=== PATIENT | male | born 1945 | race Caucasian/White ===

== ENCOUNTER 2019-04-13 01:39 | Inpatient (IN) | payer OTHER ==
[2019-04-13] VITALS (11 sets, daily range): BP systolic 54–194; BP diastolic 19–95; Ht 185.4 cm; Wt 135.0 kg
[~2019-04-13] VITALS: Ht 185.4 cm; Wt 135.0 kg
--- NOTE | 2019-04-13 01:50 | NUR ---
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 PT STATES THAT HE WAS TRYING TO HAVE A BOWEL MOVEMENT AND STARTED TO EXPERIENCE CHEST PAIN UNDER THE R BREAST THAT RADIATES UP TOWARDS THE LEFT BREAST. PT HAD A RELIEF OF PAIN DOWN TO 2 AFTER THE ADMINISTRATION OF 4 NITROS FITNESS FLOOR ATTENDANT. PT CURRENTLY HAS CHEST PAIN OF 2/10 THAT IS STILL UNDER THE R CHEST. PT IS DIAPHORETIC AND TACHYPNIC. PT HAS HX OF AFIB AND IS AFIB ON THE MONITORS. PT IS SPEAKING IN SHORT 2 TO 3 WORD SENTENCES. PT HAS UPPER LOBE WHEEZING AFTER 1 BREATHING TX EN ROUTE. PT HAS DIMINISHED LUNG SOUNDS IN THE BL BASES. PT HAS PITTING EDEMA TO BLLE EXTREMETIES AND BL UPPER EXTREMITIES. PT HAS EXTENSIVE HX. MD ROMERO AWARE AND AT BEDSIDE. PT CONNECTED TO FULL CM, PULSE OX AND BP MONITORS. AWAITING NEW ORDERS AT THIS TIME. CIM OFFICERS AT BEDSIDE
--- NOTE | 2019-04-13 02:10 | NUR ---
PT HAS SCABBING TO INNER BUTT CREASE FOLD. NO OPEN WOUND NOTED. BLANCHABLE REDNESS TO SACRAL/COCCYX AREA.
[2019-04-13 02:57] LABS: PLATELET COUNT 100 x10^3mcL (130-400); RED CELL DISTRIBUTION WIDTH 15.6 % (11.5-14.5)
[2019-04-13 03:19] LABS: ALKALINE PHOSPHATASE 206 U/L (46-116); ALT/SGPT 385 U/L (16-63); AST/SGOT 267 U/L (15-37); BILIRUBIN TOTAL 2.73 mg/dL (0.20-1.00); CARBON DIOXIDE 34.3 mmol/L (21-32); CHLORIDE SERUM 102 mmol/L (98-107); CREATININE SERUM 1.4 mg/dL (0.7-1.3); GLUCOSE SERUM 344 mg/dL (74-106); SODIUM SERUM 146 mmol/L (136-145)
[2019-04-13 03:20] LABS: ALBUMIN 2.7 g/dL (3.4-5.0); TOTAL PROTEIN, SERUM 5.6 g/dL (6.4-8.2)
[2019-04-13 03:22] LABS: POTASSIUM SERUM 2.3 mmol/L (3.5-5.1)
[2019-04-13 03:26] LABS: ATYPICAL LYMPH 1 %; BAND NEUTROPHIL 5 % (0-10); MONOCYTE 1 % (0-7); SEGMENTED NEUTROPHILS 90 % (37-75)
[2019-04-13 03:27] LABS: PLATELET MORPHOLOGY PLATELETS DECREASED; rbc morphology (normal/abnorm) ABNORMAL (NORMAL)
--- NOTE | 2019-04-13 03:59 | NUR ---
MD ROMERO MADE AWARE OF PT CURRENT CHEST PAIN AT 510 AT THIS TIME. AWAITING NEW ORDERS AT THIS TIME
[2019-04-13] MEDS ORDERED: TOPROL XL25 MG PO (04:06)
[2019-04-13] MEDS ORDERED: ENALAPRIL MALEA10 MG PO (04:06)
[2019-04-13] MEDS ORDERED: GOOD SENSE ASP325 MG PO (04:07)
--- NOTE | 2019-04-13 04:21 | NUR ---
PT BECOMES INCREASINGLY SOB UPON DOING ANY MOVEMENT. PT HAD TO URINATE AND BECOMES INCREASING SOB AND HIS HR INCREASES BY 20-40 BEATS ON THE MONITOR. MD ROMERO MADE AWARE
--- NOTE | 2019-04-13 04:22 | NUR ---
CALLED LAB FOR BLOOD CULTURE DRAW
--- NOTE | 2019-04-13 04:25 | NUR ---
PT HAS AUDIBLE MOIST COUGH HEARD. NON PRODUCTIVE AT THIS TIME. PT STILL AXO X4. PT APPPEARS LESS DIAPHORETIC WHILE NOT MOVING. PT CALM AND COOPERATIVE ALL MONITORS STILL IN PLACE
[2019-04-13 04:43] LABS: CHOLESTEROL/HDL RATIO 3.3; MAGNESIUM 2.3 mg/dL (1.8-2.4)
--- NOTE | 2019-04-13 04:51 | NUR ---
ULTRASOUND AT BEDSIDE
--- NOTE | 2019-04-13 05:14 | NUR ---
PT O2 INCREASED TO 8L NON REBREATHER MASK
--- NOTE | 2019-04-13 05:28 | NUR ---
RT AT BEDSIDE FOR BREATHING TX
--- NOTE | 2019-04-13 05:39 | NUR ---
PT PLACED ON BIPAP AND PT STATES THAT HE FEELS BETTER ON THE BIPAP. MD ROMERO MADE AWARE
--- NOTE | 2019-04-13 05:55 | NUR ---
MD HINDS MADE AWARE PT CAN NOT SWALLOW PILLS AND STATES OKAY FOR PT TO HAVE LIQUID FORM
--- NOTE | 2019-04-13 06:12 | NUR ---
PT TAKEN TO CT VIA JAROD WITH CIM AND I ACCOMPANYING HIM
--- NOTE | 2019-04-13 06:46 | NUR ---
MD LORENZO MADE AWARE OF PT CURRENT HR AND NEW ORDERS RECIEVED
--- NOTE | 2019-04-13 07:15 | NUR ---
REPORT GIVEN TO BETHANY SY RN TO RESUME FURTHER CARE OF THE PT
--- NOTE | 2019-04-13 07:16 | NUR ---
RECIEVED REPORT FROM REG NICHOLSON. AT BEDSIDE PT IS AAOX4, PT ON BIPAP, PT CALM AND COOPERATIVE, PT POSITIONED IN HIGH FOWLERS, SKIN IS PINK, WARM AND DRY.
--- NOTE | 2019-04-13 07:22 | NUR ---
PT STILL IN AFIB, DR. LORENZO/DR. HINDS MADE AWARE. QQ=248. PT TO BE SWITCHED TO ICU AND PLACED ON A CARDEZEM DRIP. WAITING FOR ORDERS. CHARGE NURSE LUIS ALBERTO MADE AWARE.
--- NOTE | 2019-04-13 07:24 | NUR ---
DR. HINDS MADE AWARE OF NEW CRITICAL RESULT. LACTIC ACID 5.0
--- NOTE | 2019-04-13 08:04 | NUR ---
PT REPOSITIONED WITH THE ASSISTANCE OF JOSE PINK. PT NOW SITTING IN HIGH FOWLERS. DK=580, SP02=97% ON BI-PAP,RR=37, SKIN IS PINK, WARM AND DRY. PT ASKED FOR SOME WATER, 150CC OF WATER GIVEN, OK PER DR. LORENZO.
--- NOTE | 2019-04-13 08:14 | NUR ---
DR. LORENZO AT BEDSIDE FOLLOWING UP ON PT. PT REPORTS NOT BEING TIRED WITH HIS BREATHING. PT ASKED FOR MORE WATER. OK FOR A LITTLE MORE PER DR. LORENZO.
--- NOTE | 2019-04-13 08:17 | NUR ---
DILTIAZEM IV INCREASED FROM 5ML/HR TO 10ML/HR. PT AAOX4. PER ICU THEY WILL CALL ME BACK TO GET REPORT.
--- NOTE | 2019-04-13 08:41 | NUR ---
HAND-OFF REPORT TO REG PANIAGUA FROM ICU TO ASSUME CARE.
--- NOTE | 2019-04-13 08:45 | NUR ---
RECEIVED PT VIA GUERNEY ACCOMPANIED BY RN AND HISTORIC PRESERVATIONIST. PT AAOX4. ABLE TO FOLLOW COMMANDS. RESTLESS AND LETHARGIC. PERRL. NO FACIAL DROOP. SPEECH IS CLEAR AND APPROPRIATE. EENT FREE OF DISCHARGE. TRACHEA MIDLINE. NO JVD PRESENT. RESPIRATIONS ARE EVEN BUT LABORED. COARSE CRACKLES/RONCHI AUSCULTATED. SYMMETRICAL CHEST WALL EXPANSION NOTED. PT PLACED ON BIPAP 10/5, FIO2 OF 100%. VS: 148/75 (89), HR = 143, RR = 30, O2 98%. AFIB WTIH RVR ON CARDIAC MONTIOR. CARDIZEM GTT INFUSING @ 10MG/MIN. MOD PULSES TO BUE, WEAK TO BLE. CAP REFILL <3 SEC. SKIN IS WARM/DRY TO BUE, COOL/DRY TO BLE. BANKS COLOR TO BUE, PALE TO BLE. +2 PITTING EDEMA TO BLE. PIV TO R FA INTACT, PORT PATENT, DRESSING CDI. ABD IS SOFT, SYMMETRICAL, ROUNDED, AND NONTENDER. PT DENIES N/V. PICTURES PENDING FOR SKIN ASSESSMENT. JOINTS INTACT. NO CONTRACTURES. CIM PT, 2 GUARDS AT BEDSIDE, WAIST CHAINS NOTED, HANDCUFFED TO BOTH ANKLES.
--- NOTE | 2019-04-13 09:10 | NUR ---
LAM CATHETER INSERTED INTO PT AT THIS TIME. SUCCESSFUL ATTEMPT. URINE IS VIANCA IN COLOR WITH 150CC OUTPUT ONCE INSERTED. NO COMPLICATIONS AT THIS TIME.
--- NOTE | 2019-04-13 09:14 | NUR ---
SPOKE WITH DR HINDS AND PROVIDED PATIENT UPDATE. NEW ORDERS RECEIVED. WILL CARRY OUT ORDERS.
--- NOTE | 2019-04-13 09:20 | NUR ---
PT REMOVED BOTH IV'S AT THIS TIME. ATTEMPTING TO INSERT ONE AT THIS TIME.
--- NOTE | 2019-04-13 09:30 | NUR ---
USING ASEPTIC TECHNIQUE, #16 PORTUGUESE LAM CATHETER INSERTED. 150 ML OF YELLOW COLORED URINE RETURNED. PATIENT TOLERATED WELL.
--- NOTE | 2019-04-13 10:10 | NUR ---
20 G IV INSERTED TO R FA INTACT, GOOD FLUSH, PORT PATENT, DRESSING CDI. CARDIZEM GTT RESTARTED @ 10 MG/MIN.
--- NOTE | 2019-04-13 11:21 | NUR ---
PT BS OF 163. NO HUMULIN REGULAR INSULIN COVERAGE GIVEN DUE TO PT'S NPO STATUS.
--- NOTE | 2019-04-13 11:48 | NUR ---
CARDIZEM GTT TITRATED TO 15 MG/MIN TO ACHIEVE HR OF 90'S. PT HR OF 120
--- NOTE | 2019-04-13 11:55 | NUR ---
PATIENT DIAPHORETIC WITH LABORED BREATHING IN 30'S. PATIENT LETHARGIC AND UNABLE TO RESPOND APPROPRIATELY. SPO2 ON BIPAP 84% AT 100% FIO2. TELEPHONED DR HINDS AND PROVIDED PATIENT UPDATE. OKAY TO INTUBATE PATIENT.
--- NOTE | 2019-04-13 11:57 | NUR ---
TELEPHONED ED AND INFORMED PATIENT IN NEED OF INTUBATION.
--- NOTE | 2019-04-13 12:20 | NUR ---
OGT TO SUCTION WITH GREEN BILE DRAINING IN CANISTER.
--- NOTE | 2019-04-13 12:27 | NUR ---
DR LEES, STEPHEN RT, LUIS ALBERTO BOO RN, ARCELIA RN AND MYSELF AT BEDSIDE. 1200- PATIENT ADMINISTERED 150 MG KETAMINE FOLLOWED BY 300 MG SUCC'S. IVP PER DR LEES ORDER. 1201- PATIENT INTUBATED WITH 7.5 ETT AT 22 LL. VITALS BP 77/35, HR 72. DR LEES MADE AWARE. VERBAL ORDER RECEIVED FOR 1L NS BOLUS AND 4 MG LEVOPHED DRIP INITIATED. 1202- CARDIZEM DRIP OFF 1210-1 LITER NS BOLUS INITIATED 1215- LEVOPHED INITIATED AT 2 MCG/HR 1217- BP 96/57 WITH MAP (68), HR REMAINS IN MID 70'S. PER DR LEES, HE WILL PLACE CENTRAL LINE.
--- NOTE | 2019-04-13 12:28 | NUR ---
DR HINDS AT BEDSIDE TO ASSESS PATIENT. UPDATES PROVIDED BY NURSING.
--- NOTE | 2019-04-13 12:30 | NUR ---
B/E SOFT WRIST RESTRAINTS APPLIED FOR PT'S SAFETY AND PROTECTION OF REMOVAL OF TUBES. 2 FINGER WIDTH UNDERNEATH RESTRAINT, EXTREMITIES WARM AND PINK, CAP REFILL <3 SEC, JOINTS INTACT. WILL CONT TO MONTIOR.
--- NOTE | 2019-04-13 13:38 | NUR ---
INITIATED FENT @ 0.5 MCG/KG/HR AND VERSED @ 1 MG/HR PER 'S ORDERS AND TO ACHEIVE RSS OF 4. WILL CONT TO MONITOR.
--- NOTE | 2019-04-13 14:13 | NUR ---
MAP OF 60. INCREASED LEVOPHED TO 4 MCG/MIN TO ACHEIVE MAP OF 65.
--- NOTE | 2019-04-13 14:45 | NUR ---
GALO RT AT BEDSIDE CHANGING VENT SETTINGS ON PT. ETT TO VENT: VCV/AC MODE = 10 PEEP, 550 VT, 100% FIO2, 18 RATE. O2 SAT OF 92%.
--- NOTE | 2019-04-13 14:50 | NUR ---
MAP OF 80. TITRATED LEVOPHED TO 2 MCG/MIN TO ACHIEVE MAP OF 65.
--- NOTE | 2019-04-13 15:38 | NUR ---
SPOKE WITH DR EASTON VIA TELEPHONE AND PROVIDED PATIENT UPDATE. NEW ORDERS RECEIVED. WILL CARRY OUT ORDERS.
--- NOTE | 2019-04-13 15:41 | NUR ---
SPOKE WITH DR HINDS AND PROVIDED PATIENT UPDATE AND TROPONIN LAB 0.39. NEW ORDERS RECEIVED. WILL CARRY OUT ORDERS.
--- NOTE | 2019-04-13 15:45 | NUR ---
LEVOPHED TURNED OFF AT THIS TIME. PT'S MAP OF 90
--- NOTE | 2019-04-13 16:45 | NUR ---
MAP OF 48. LEVOPHED TURNED ON AT THIS TIME INFUSING @ 2 MCG/MIN TO ACHIEVE MAP OF 65.
--- NOTE | 2019-04-13 17:00 | NUR ---
RESTRAINTS TAKEN OFF AT THIS TIME. PT OBTUNDED. NO INDICATED FOR USE.
--- NOTE | 2019-04-13 17:01 | NUR ---
DR PINEDA BEDSIDE AT BEDSIDE TO ASSESS PATIENT. UPDATES PROVIDED BY NURSING.
--- NOTE | 2019-04-13 17:03 | NUR ---
LEVO TITRATED TO 4 MCG/MIN TO ACHEIEVE MAP OF 65.
--- NOTE | 2019-04-13 17:12 | NUR ---
1715 - PT WENT BRADYCARDIC IN THE 50'S. 171 - CHECKED FOR PULSE. NO PULSE PALPABLE OR WITH DOPPLER. CODE BLUE CALLED AND CPR BEGAN. 171 - DR. PINEDA AT BEDSIDE AND STATED FOR EPI TO BE GIVEN. FIRST DOSE OF EPINEPHRINE 1:1000 GIVEN AND FLUSHED. 171 - DR. JOHNSTON AT BEDSIDE 1720 - PULSE GAINED BACK. BP = 139/76 (98). SEE CODE SHEET FOR DETAILS.
--- NOTE | 2019-04-13 17:20 | NUR ---
LEVOPHED TITRATED TO 6 MCG/MIN TO ACHEIVE MAP OF 65.
--- NOTE | 2019-04-13 17:25 | NUR ---
LEVOPHED TITRATED TO 8 MCG/MIN TO ACHEIVE MAP OF 65.
--- NOTE | 2019-04-13 17:45 | NUR ---
LEVOPHED TITRATED TO 10 MCG/MIN TO ACHEIVE MAP OF 65.
--- NOTE | 2019-04-13 17:50 | NUR ---
LEVOPHED TITRATED TO 12 MCG/MIN TO ACHEIVE MAP OF 65.
--- NOTE | 2019-04-13 18:10 | NUR ---
LEVOPHED TITRATED TO 14 MCG/MIN TO ACHEIVE MAP OF 65.
--- NOTE | 2019-04-13 18:30 | NUR ---
1830 - PT BECOMING BRADYCARDIC. CHECK FOR PULSES. NO PULSES PALPABLE AND VIA DOPPLER. DR. EASTON SAYS TO GIVE EPI 1:1000. EPI GIVEN. 183 - 2ND EPI GIVEN. 183 - BICARB AND D50 GIVEN. PULSE CHECK - PULSE REGAINED AT THIS TIME. SEE CODE SHEET FOR DETAILS.
--- NOTE | 2019-04-13 18:40 | NUR ---
RIGHT FEMORAL PLACED BY DR. EASTON. ULTRASOUND AT BEDSIDE. ART LINE CONNECTED TO MONITOR AT THIS TIME. BP OF 60/44 (49).
--- NOTE | 2019-04-13 18:50 | NUR ---
PER DR. EASTON, VERBAL ORDER FOR PT TO BE STARTED ON DOPAMINE GTT AT THIS TIME. INITIATED DOPAMINE @ 10 MCG/KG/MIN.
--- NOTE | 2019-04-13 19:19 | NUR ---
RECIEVED REPORT FROM REG PANIAGUA. PT UPDATES. POC DISCUSSED. SEE SHIFT ASSESSMENT FOR ASSESSMENT.
--- NOTE | 2019-04-13 19:20 | NUR ---
REPORT GIVEN TO MICHAEL FINNEY. ALL QUESTIONS AND CONCERNS ADDRESSED. WILL ENDORSE CARE.
--- NOTE | 2019-04-13 19:30 | NUR ---
LEVOPHED TITRATED TO 16 MCG/MIN TO ACHEIVE MAP OF 65.
--- NOTE | 2019-04-13 20:00 | NUR ---
LEVOPHED TITRATED TO 18 MCG/MIN TO ACHEIVE MAP OF 65.
--- NOTE | 2019-04-13 20:30 | NUR ---
NOTIFIED DR MARTINEZ OF LOW BP TRENDING DOWNWARD W/ POOR RESPONSE TO TITRATION OF LEVO. INTIATED NEW ORDER VASOPRESSIN 100U/500ML DRIP TO MAINTAIN MAP > 65 ORDER VERIFIED PER TELEPHONE PHARMACY.
--- NOTE | 2019-04-13 20:30 | NUR ---
LEVOPHED TITRATED TO MAX 30 MCG/MIN TO ACHEIVE MAP OF 65.
--- NOTE | 2019-04-13 20:30 | NUR ---
LEVOPHED TITRATED TO 25 MCG/MIN TO ACHEIVE MAP OF 65. PT BP VERY LOW 55/19(40).
--- NOTE | 2019-04-13 21:11 | NUR ---
INTIATED VASO DRIP @ 0.01U/MIN. PT BP UNRESPONSIVE. TITRATED TO 0.02U/MIN PER PROTOCOL. PT BP SLIGHTLLY BETTER MAP INCREASED FROM 40'S TO 50. WILL CONT TO MONITOR.
--- NOTE | 2019-04-13 21:13 | NUR ---
TITRATED DOPAMINE TO MAX 20MCG MIN PER PROTOCOL W/ MAP < 65. WILL CONT TO MONITOR. BP UNRESPONSIVE.
--- NOTE | 2019-04-13 21:30 | NUR ---
PT BS LOW 47, W/ RECHECK 44. ADM *(SEE MAR)* D50. WILL REASSESS.
--- NOTE | 2019-04-13 21:34 | NUR ---
PT W/ BS 44 AND 47. ADM *(SEE MAR)* PRN D50. WILL RECHECK BS.
--- NOTE | 2019-04-13 21:36 | NUR ---
VASOPRESSIN TITRATED TO MAX 0.04U/MIN FROM 0.02U/MIN PER LOW BP MAP < 65.
--- NOTE | 2019-04-13 22:09 | NUR ---
NOTIFIED DR MARTINEZ OF PT BP MAP CONTINUAL LESS THAN > 65. UPDATES PROVIDED ON PT. VASO, LEVO, DOPA ARE ON MAX DOSES. NO NEW ORDERS @ THIS TIME.
--- NOTE | 2019-04-13 22:15 | NUR ---
PT BS 77 AFTER D5. WILL RECHECK.
--- NOTE | 2019-04-13 22:48 | NUR ---
NOTIFIED PER LAB TROPONIN 2.413.
--- NOTE | 2019-04-14 00:07 | NUR ---
UNABLE TO READ O2 SAT. TRIED FINGER, TOE, FOREHEAD, EAR. UNABLE TO ACQUIRE ACCURATE READING. WILL CONT TO MONITOR.
[2019-04-14 01:30] VITALS: BP 88/34
--- NOTE | 2019-04-14 03:09 | NUR ---
PT BS 71. WILL RECHECK FOR NEED OF D5.
[2019-04-14 03:12] VITALS: BP 37/19
[2019-04-14 03:30] VITALS: BP 40/25
[2019-04-14 04:54] LABS: ALKALINE PHOSPHATASE 212 U/L (46-116); BILIRUBIN TOTAL 7.16 mg/dL (0.20-1.00); CALCIUM 6.1 mg/dL (8.5-10.1); CARBON DIOXIDE 27.9 mmol/L (21-32); CHLORIDE SERUM 103 mmol/L (98-107); CREATININE SERUM 3.9 mg/dL (0.7-1.3); SODIUM SERUM 147 mmol/L (136-145)
[2019-04-14 04:55] LABS: PLATELET COUNT 48 x10^3mcL (130-400); RED CELL DISTRIBUTION WIDTH 16.9 % (11.5-14.5)
[2019-04-14 04:58] LABS: TOTAL PROTEIN, SERUM 4.7 g/dL (6.4-8.2)
[2019-04-14 05:11] LABS: BAND NEUTROPHIL 14 % (0-10); BASOPHIL 0 % (0-2); MONOCYTE 1 % (0-7); SEGMENTED NEUTROPHILS 79 % (37-75); rbc morphology (normal/abnorm) ABNORMAL (NORMAL)
[2019-04-14 05:13] LABS: PLATELET MORPHOLOGY PLATELETS DECREASED
[2019-04-14 05:20] LABS: ALT/SGPT 9160 U/L (16-63); AST/SGOT 5759 U/L (15-37)
[2019-04-14 05:21] LABS: GLUCOSE SERUM 45 mg/dL (74-106); POTASSIUM SERUM 6.3 mmol/L (3.5-5.1)
[2019-04-14 05:30] VITALS: BP 64/32
--- NOTE | 2019-04-14 06:09 | NUR ---
TITRATED VERSED AND FENT TO OFF. PT OBTUNDED AND RSS 6. NO RESPONSE TO PAIN. NO S/S OF DISTRESS. WILL ENDORSE.
--- NOTE | 2019-04-14 06:24 | NUR ---
REPEATED BS CHECK AFTER D50 GIVEN. BS 96 WNL. WILL ENDORSE.
[2019-04-14 07:30] VITALS: BP 48/32
--- NOTE | 2019-04-14 07:30 | NUR ---
RC'D PT INTUBATED ON VENT AC MODE FOLLOWS: TV 550, FIO2 100%, PEEP 10, RATE 22. 7.5 ETT @22CM LL, INTACT AND SECURED. CHEST EXPANSION SYMETRICAL. NO SPONTANEOUS BREATHING NOTED. OGT INTACT AND SECURED, SET TO CONT SUCTION. PT DOES NOT RESPOND TO PAINFUL STIMULUS. PUPILS 6MM AND FIXED BILAT. JAUNDICED AND SCLERAL EDEMA, MOD YELLOW DRAINAGE NOTED FROM EYES. TRACHEA MIDLINE. AFIB ON CIVIL SERVICE CLERK, HR 75. LEVOPHED INFUSING @ 30MCG/MIN, DOPAMINE INFUSING AT 20MCG/KG/MIN AND VASOPRESSIN INFUSING AT 0.04UNITS/MIN. RIJ CVC INTACT, PORTS PATENT, DRESSING CDI. RIGHT FEMORAL ART LINE IN PLACE, DRESSING CDI. NO PULSES NOTED TO BUE/BLE. SKIN COOL TO TOUCH. ALL DIGITS CYANOTIC AT THIS TIME. ABDOMEN DISTENDED AND OBESE. NO BOWEL SOUNDS NOTED. F/C WITH MIN DARK VIANCA URINE DRAINING TO GRAVITY, SECURED IN PLACE. GENERALIZED SCATTERED ECCYMOSIS. ERYTHEMA NOTED TO ABDOMINAL FOLDS. BED IN LOWEST POSIITON. WILL CONT TO MONITOR
[2019-04-14 07:45] VITALS: BP 89/68
--- NOTE | 2019-04-14 07:50 | NUR ---
0735: PT ASSESSED AT THIS TIME. NO PULSE NOTED. PT ASYSTOLE. CPR INITIATED AT THIS TIME. CODE CALLED. SEE CODE SHEET. 0738: EPINEPHRINE IVP GIVEN AND FLUSHED 0741: D50 IVP GIVEN AND FLUSHED 0743: BICARB IVP GIVEN AND FLUSHED 0745: CALCIUM IVP GIVEN AND FLUSHED 0743: PER DR KRAMER, PALP PULSE AT THIS TIME. COTINUE TO MONITOR. VITAL SIGNS FOLLOWED: 89/68 (73), 84% SPO2, HR98. PT PLACED BACK ON VENT. WILL CONT TO MONITOR CLOSELY
--- NOTE | 2019-04-14 07:55 | NUR ---
VERBAL ORDER RECEIVED FROM DR KRAMER FOR BMP, EKG AND CXR. WILL CARRY OUT ORDERS.
--- NOTE | 2019-04-14 08:00 | NUR ---
DAV AT BEDSIDE FOR EKG AT THIS TIME
--- NOTE | 2019-04-14 08:05 | NUR ---
CHEST XRAY TAKEN AT THIS TIME
[2019-04-14 08:38] LABS: CALCIUM 6.6 mg/dL (8.5-10.1); CARBON DIOXIDE 23.9 mmol/L (21-32); CHLORIDE SERUM 102 mmol/L (98-107); GLUCOSE SERUM 123 mg/dL (74-106); SODIUM SERUM 145 mmol/L (136-145)
--- NOTE | 2019-04-14 08:38 | NUR ---
VERBAL ORDER RECIEVED FROM DR KRAMER TO GIVE 1L BOLUS OF LR. LR INTIATED AT THIS TIME.
--- NOTE | 2019-04-14 08:40 | NUR ---
0827: PT ASYSTOLE ON MONITOR. PT ASSESSED AT THIS TIME. NO PULSE NOTED. CPR INITIATED AT THIS TIME. CODE CALLED. SEE CODE SHEET. 0828: EPINEPHRINE GIVEN AND FLUSHED 0830: PER DR KRAMER PALP PULSE NOTED. PT PUT BACK ON VENILATOR. VITAL SIGNS FOLLOWED: 89/47(61), RESP 20. HR 66. WILL CONTINUE TO MONITOR CLOSELY
[2019-04-14 08:51] LABS: CREATININE SERUM 4.2 mg/dL (0.7-1.3); POTASSIUM SERUM 6.9 mmol/L (3.5-5.1)
--- NOTE | 2019-04-14 08:54 | NUR ---
0849: PT ASYSTOLE. PT ASSESSED AT THIS TIME. NO PULSE NOTED. CPR INITIATED AT THIS TIME. CODE CALLED. SEE CODE SHEET. 0849: EPINEPHRINE IVP GIVEN AND FLUSHED 0851: PER DR KRAMER PALP PULSE VITAL SIGNS FOLLOWED: 62/38 (46), HR 64, RESP 27. PT PLACED BACK ON VENT. WILL CONTINUE TO MONITOR CLOSELY
--- NOTE | 2019-04-14 08:56 | NUR ---
DR KRAMER NOTIFIED OF CRITICAL LAB K-6.9. VERBAL ORDER RECEIVED FROM DR KRAMER TO GIVE 10 UNTIS REGULAR INSULIN IV AND PUSH D50. ORDERS INITIATED AT THIS TIME
--- NOTE | 2019-04-14 09:10 | NUR ---
0904: PT ASYSTOLE. PT ASSESSED AT THIS TIME. NO PULSE NOTED. CPR INITIATED AT THIS TIME. CODE CALLED. SEE CODE SHEET. 0906: PER DR KRAMER, PEA AT THIS TIME. TIME OF CALLED @0907 CARDIOPULMONARY ARREST.
--- NOTE | 2019-04-14 09:24 | NUR ---
PIECE MAKER AND ADMITTING NOTIFIED @ 0910 THAT PT TIME OF @0907 FOR CARDIO PULMONARY ARREST ANNOUNCED BY DR KRAMER. PER PROTOCOL, GENERAL UTILITY MAINTENANCE REPAIRER CALLED @0912 AND AWAITING CALL BACK. [facility] CALLED @ 0914 AND BODY RELEASED, RELEASE .
--- NOTE | 2019-04-14 10:30 | NUR ---
CIM GUARDS PRESENT AT BEDSIDE OBTAINING FINGERPRINTS AND PHOTOS AT THIS TIME
--- NOTE | 2019-04-14 12:24 | NUR ---
RECIEVED CALL FROM EYEGLASS LENS GENERATOR LUCERO TIWARI @6160. EYEGLASS LENS GENERATOR UPDATED ON PATIENT INFORMATION. EYEGLASS LENS GENERATOR SPOKE WITH CIM GUARDS AT BEDSIDE WELL. PER EYEGLASS LENS GENERATOR B[place] [facility] [place] [facility] [place] [facility]. WILL F/U WITH CIM GUARDS AND [facility] PROTOCOL
--- NOTE | 2019-04-14 12:33 | NUR ---
[facility] CONTACTED [facility] FOR PROTOCOL. PER [facility] RUSS SILVA RECIEVED [facility] INSTRUCTIONS THAT PT TO BE RELEASED TO "[facility]".
--- NOTE | 2019-04-14 14:06 | NUR ---
POST PARTEM CARE PROVIDED BY NURSING STUDENTS. SECURITY AT BEDSIDE TO TRANSITION PT TO [place] AT THIS TIME.
== END 2019-04-14 14:15 | disposition expired | DRG 871 ==
LOC: ED 01:39 → IC 04:11 → DU 04:11 → IC 08:19
PROVIDERS: Emergency Medicine; ADMIT Internal Medicine
PROC: 02HV33Z Insertion of Infusion Device into Superior Vena Cava, Percutaneous Approach (ICD-10-PCS; principal; 2019-04-13)
PROC: B548ZZA Ultrasonography of Superior Vena Cava, Guidance (ICD-10-PCS; 2019-04-13)
PROC: 0BH17EZ Insertion of Endotracheal Airway into Trachea, Via Natural or Artificial Opening (ICD-10-PCS; 2019-04-13)
PROC: 5A1935Z Respiratory Ventilation, Less than 24 Consecutive Hours (ICD-10-PCS; 2019-04-13)
PROC: 5A09357 Assistance with Respiratory Ventilation, Less than 24 Consecutive Hours, Continuous Positive Airway Pressure (ICD-10-PCS; 2019-04-13)
PROC: 5A12012 Performance of Cardiac Output, Single, Manual (ICD-10-PCS; 2019-04-13)
DX: A41.9 Sepsis, unspecified organism (principal); J96.01 Acute respiratory failure with hypoxia; I21.4 Non-ST elevation (NSTEMI) myocardial infarction; R65.21 Severe sepsis with septic shock; N17.9 Acute kidney failure, unspecified; I48.91 Unspecified atrial fibrillation; I25.10 Atherosclerotic heart disease of native coronary artery without angina pectoris; E78.00 Pure hypercholesterolemia, unspecified; I10 Essential (primary) hypertension; J44.9 Chronic obstructive pulmonary disease, unspecified; Z86.73 Personal history of transient ischemic attack (TIA), and cerebral infarction without residual deficits; B19.20 Unspecified viral hepatitis C without hepatic coma; Z95.1 Presence of aortocoronary bypass graft; Z98.61 Coronary angioplasty status; E87.6 Hypokalemia; E11.65 Type 2 diabetes mellitus with hyperglycemia; I46.9 Cardiac arrest, cause unspecified
CPT/HCPCS: 31500; 36556; 36600; 82962; 83880; A4628; G0378; J0171; J0330; J1650; J1720; J1940; J2250; J2270; J2405; J2543; J3010; J3480; J3490; J7030; J7040; J7050; J7120; Q0092; Q9967